=== PATIENT | male | born 1985 | race Caucasian/White ===

== ENCOUNTER 2017-02-18 11:33 | Emergency (ER) | payer MEDICARE ==
--- NOTE | ~2017-02-18 | ER ---
PATIENT'S NAME: MARIAJOSE OLSON [facility] AGE: 31 Y [address] ROOM: [place] [address] LOCATION: [facility] ADMIT DATE: 02/18/2017 ER/Outpatient Report DISCHARGE DATE: 02/18/2017 FAMILY PHYSICIAN: PHYSICIAN, NO ATTENDING PHYSICIAN: Rylan Lee Time of Arrival: 1133 hours. Time of Evaluation: 1200 hours. CHIEF COMPLAINT: Cut to toe. HISTORY OF PRESENT ILLNESS: This is a 31-year-old male, who presents to the ER with a left foot injury. The patient states he is deaf, he does have a friend, who translates for him. The patient states that he does not know of any injury to the foot. He states he woke up today and noticed some bleeding from underneath his left fourth toe. He states that he has not wiped away the blood to see where it was coming from and denies any significant pain at this time. ALLERGIES: NO KNOWN ALLERGIES. MEDICATIONS: None. PAST MEDICAL HISTORY: He is deaf. He does wear hearing aids. SOCIAL HISTORY: He does have a smoking history, he quit 5 years ago. REVIEW OF SYSTEMS: CONSTITUTIONAL: Denies any change in weight or fatigue. MUSCULOSKELETAL: No weakness or myalgias. SKIN: He has bleeding coming from underneath his left fourth toe. PHYSICAL EXAMINATION: VITAL SIGNS: Height 5 feet and 11 inches stated, weight 82.8 kg taken, blood pressure is 135/79, pulse 95, respirations 14, temperature 99.1 degrees tympanically, and saturations 95% on room air. [place] Coma Score is 15. GENERAL: Alert, calm, well-developed male, in no acute distress. EXTREMITIES: No clubbing or cyanosis. He has full range of motion of all limbs. SKIN: He does have macerated skin noted between all of his toes. We did wipe PATIENT'S NAME: [facility]AN [facility] AGE: 31 Y [address] ROOM: [place] [address] LOCATION: [facility] ADMIT DATE: 02/18/2017 ER/Outpatient Report DISCHARGE DATE: 02/18/2017 FAMILY PHYSICIAN: PHYSICIAN, NO ATTENDING PHYSICIAN: Rylan Lee the blood away and there is a small fissure in the skin noted between his third and fourth toes. He does have this erythematic macerated skin between each of his toes on bilateral feet. LABORATORY DATA AND X-RAYS: None were done. IMPRESSION: Bilateral tinea pedis. ASSESSMENT AND PLAN: I did give the patient reassurance. We did cleanse his feet. We will send him home with a prescription for Lotrimin AF Cream to apply as directed. He needs to keep his feet clean and dry. I advised wearing clean socks and changing them frequently. He needs to monitor his symptoms and follow up with his primary care physician if he does not improve. The patient and patient's family understand and agree with care. VIRAL LOPEZ PA-C FOR MD JEN KO/viki /[id number] d: 02/18/171955 t: 02/21/17611, OUTPATIENT REPORT
== END 2017-02-18 12:12 | disposition disaster alternative care site (69) ==
LOC: GACC 11:33
DX: B35.3 Tinea pedis (principal); Z87.891 Personal history of nicotine dependence